=== PATIENT | female | born 1995 | race Caucasian/White ===

== ENCOUNTER 2020-12-15 23:55 | Emergency (ER) | payer MEDICAID ==
[~2020-12-15] VITALS: Ht 142.2 cm; Wt 69.0 kg
[2020-12-16 00:42] VITALS: BP 116/74
[2020-12-16] MEDS ORDERED: IBUPROFEN 600MG TABLET PO ONE (00:45)
[2020-12-16] MEDS ORDERED: SODIUM CHLORIDE 0.9% 1,000 ML IV ONE (00:45)
[2020-12-16 01:37] LABS: BASOPHILS % 0.5 % (0.0-2.0); EOSINOPHILS % 5.9 % (0.0-5.0); HEMATOCRIT. 34.8 % (36.0-48.0); HEMOGLOBIN. 11.9 g/dL (12.0-16.0); LYMPHOCYTES % 26.5 % (20.0-50.0); MEAN CORPUSCULAR HEMOGLOBIN 29.7 pg (28.0-32.0); MEAN CORPUSCULAR VOLUME 87.1 fL (81.0-99.0); MEAN PLATELET VOLUME 9.3 fl (7.4-10.4); MONOCYTES % 5.2 % (2.0-8.0); NEUTROPHILS % 61.9 % (40.0-76.0); PLATELET 237 x1000/uL (130-400); RED CELL DISTRIBUTION WIDTH 13.1 % (11.6-14.6)
[2020-12-16 01:44] LABS: CHLORIDE 108 mEq/L (98-107)
[2020-12-16 01:55] LABS: B-HCG QUANTITATIVE 369 mIU/mL (<3)
== END 2020-12-16 02:20 | disposition home or self-care (01) ==
LOC: ER 23:55
DX: O03.1 Delayed or excessive hemorrhage following incomplete spontaneous abortion (principal); N93.9 Abnormal uterine and vaginal bleeding, unspecified
CPT/HCPCS: 36415; 76830; 76856; 80053; 84702; 85025; 86850; 86900; 86901; 99284; J7030

== ENCOUNTER 2022-08-01 11:50 | Observation (INO) | payer MEDICAID ==
[~2022-08-01] VITALS: Ht 142.2 cm; Wt 59.0 kg
[2022-08-01] MEDS ORDERED: LACTATED RINGERS 1,000 ML IV SCH (14:30)
[2022-08-01 15:22] LABS: CLARITY URINE CLEAR (CLEAR); COLOR URINE YELLOW (YELLOW); KETONES URINE NEGATIVE (NEGATIVE); LEUKOCYTE ESTERASE URINE NEGATIVE (NEGATIVE); NITRITE URINE NEGATIVE (NEGATIVE); OCCULT BLOOD URINE NEGATIVE (NEGATIVE); PROTEIN URINE NEGATIVE (NEGATIVE); SPECIFIC GRAVITY URINE 1.012 (1.005-1.030)
== END 2022-08-01 16:30 | disposition home or self-care (01) ==
LOC: 8 EST A/PP 11:50
PROVIDERS: ADMIT Obstetrics & Gynecology; ATTEND Obstetrics & Gynecology
DX: O26.892 Other specified pregnancy related conditions, second trimester (principal); R10.2 Pelvic and perineal pain; Z3A.26 26 weeks gestation of pregnancy
CPT/HCPCS: 59025; 76805; 81003; 96360; G0378; 96361; 99281